=== PATIENT | female | born 1985 | race Caucasian/White ===

== ENCOUNTER 2017-06-21 09:25 | Emergency (ER) | payer SELFPAY ==
[2017-06-21 09:43] VITALS: TEMP 98.7; BMI 22.4
[2017-06-21 09:47] LABS: URINE APPEARANCE Clear; URINE BILIRUBIN Negative (NEGATIVE); URINE BLOOD Negative (NEGATIVE); URINE GLUCOSE (UA) Negative (NEGATIVE); URINE KETONE 1+ (NEGATIVE); URINE LEUK ESTERASE Negative (NEGATIVE); URINE NITRITE Negative (NEGATIVE); URINE PROTEIN Negative (NEGATIVE); URINE UROBILINOGEN 0.2 (0.2-1.0)
[2017-06-21 09:51] LABS: URINE COLOR YELLOW
[2017-06-21] MEDS ORDERED: SODIUM CHLORIDE 1,000 ML IV ONE (09:53)
--- NOTE | 2017-06-21 09:59 | PDOC ---
History of Present Illness - General Chief Complaint: Palpitations Stated Complaint: FELT SHAKEY THIS AM HAD PALPITATION AND VOMITT Time Seen by Provider: 06/21/17 09:29 History Source: Patient Exam Limitations: No Limitations - History of Present Illness Initial Comments: 06/21/17 09:54 31y F with no pmhx presents with complaint of feeling shaky and palpitations. Pt states she was out celebrating last night and had about 5 beers, this morning , she woke up feeling very shaky, feeling nervous. Her family member checked her bp and saw it was 90s/70s so she drank some water and coffee, she didnt feel much better so came to the ED. En route, she felt nauseus, lightheaded and briefly had some blurred vision. She vomited in front of the ED and notes she feels alittle better, but still feels very nevous and shaky. Pt has never felt like this before. Pt denies any cp, sob, abd pain, melena/bpr, dysuria, frequency. LMP approx 20 days ago. Family history of DM Pt is a daily smoker. Denies any IVDU, cocaine use drinks approx 1x month. PMD: someone at [facility] Past History - Past Medical History Allergies/Adverse Reactions: Allergies Allergy/AdvReac Type Severity Reaction Status Date / Time No Known Allergies Allergy Unverified 06/21/17 09:35 Home Medications: Ambulatory Orders Aspirin [ASA -] 81 mg PO DAILY #30 tab.chew 06/21/17 Metoprolol Tartrate 25 mg PO DAILY #30 tablet 06/21/17 Other medical history: DENIES - Psycho/Social/Smoking Cessation Hx Anxiety: No Suicidal Ideation: No Smoking History: Current every day smoker Have you smoked in the past 12 months: Yes Number of Cigarettes Smoked Daily: 3 Information on smoking cessation initiated: Yes 'Breaking Loose' booklet given: 06/21/17 Hx Alcohol Use: Yes (OCCASSIONAL) Drug/Substance Use Hx: No Substance Use Type: Alcohol Review of Systems - Review of Systems Able to Perform ROS?: Yes Comments:: 06/21/17 09:58 Constitutional - +feeling nervous no reported Fever, Chills, HEENT: no reported vision changes, sore throat Respiratory: no reported cough, sob, hemoptysis Cardiac: +palpitations, light headedness, no reported chest pain, leg swelling Abd/GI: +nausea, vomiting, no reported abd pain, blood per rectum, melena, diarrhea : no reported dysuria, frequency, discharge Musculskelatal - no reported back pain, joint swelling skin - no reported bruising, erythema, rash neurological: no reported headache, numbness, focal weakness, tingling, ataxia, hematologic: no reported anemia, easy bruising, easy bleeding *Physical Exam - Vital Signs Last Vital Signs Temp Pulse Resp BP Pulse Ox 98.7 F 90 16 102/65 100 06/21/17 09:29 06/21/17 11:55 06/21/17 11:55 06/21/17 11:55 06/21/17 11:55 - Physical Exam Comments: 06/21/17 09:58 GENERAL: The patient is awake, alert, and fully oriented, Nontoxic - in no acute distress. HEAD: Normocephalic, atraumatic. EYES: extraocular movements intact, sclera anicteric, conjunctiva clear. ENT: Normal voice, Moist mucous membranes. NECK: Normal range of motion, supple LUNGS: Breath sounds equal, clear to auscultation bilaterally. No wheezes, no rhonchi, no rales. HEART: irregularly irregular, tachycardic, normal S1 and S2 without murmur, rub or gallop. ABDOMEN: Soft, nontender, normoactive bowel sounds. No guarding, no rebound. . No CVA tenderness EXTREMITIES: Normal range of motion, no edema. neg homans sign, no tenderness NEUROLOGICAL: No facial assymetry, Normal speech, moving all 4 extremities spontaneously and symemtrically PSYCH: Normal mood, normal affect. SKIN: Warm, Dry, normal turgor, Heart Score/ECG Review - ECG Impressions Comment:: 06/21/17 09:59 Twelve-lead EKG was performed and reviewed by me. Irregularly irregular, rate of 111 The axis is normal. There is normal R wave progression There are no ST or T wave abnormalities. Impression: A. fib with RVR 06/21/17 11:52 Twelve-lead EKG was performed and reviewed by me. There is normal sinus rhythm with a normal rate. Rate of 90 The axis is normal. The intervals are normal. There is normal R wave progression There are no ST or T wave abnormalities. Impression: Normal twelve-lead EKG ED Treatment Course - LABORATORY CBC & Chemistry Diagram: 06/21/17 10:06 06/21/17 10:06 - ADDITIONAL ORDERS Additional order review: Laboratory Results 06/21/17 06/21/17 06/21/17 10:06 10:06 10:06 INR 0.88 L Sodium 135 L Potassium 5.0 Chloride 104 Carbon Dioxide 20 L Anion Gap 11 BUN 17 Creatinine 0.7 Creat Clearance w eGFR > 60 Random Glucose 101 Calcium 9.1 Magnesium 1.9 Total Bilirubin 1.2 H AST 35 ALT 12 Alkaline Phosphatase 39 Creatine Kinase 148 Troponin I 0.01 Total Protein 8.0 Albumin 4.6 Urine Color Urine Appearance Urine pH Ur Specific Crowley Urine Protein Urine Glucose (UA) Urine Ketones Urine Blood Urine Nitrite Urine Bilirubin Urine Urobilinogen Ur Leukocyte Esterase Urine HCG, Qual 06/21/17 09:37 INR Sodium Potassium Chloride Carbon Dioxide Anion Gap BUN Creatinine Creat Clearance w eGFR Random Glucose Calcium Magnesium Total Bilirubin AST ALT Alkaline Phosphatase Creatine Kinase Troponin I Total Protein Albumin Urine Color Yellow Urine Appearance Clear Urine pH 7.0 Ur Specific Crowley 1.020 Urine Protein Negative Urine Glucose (UA) Negative Urine Ketones 1+ H Urine Blood Negative Urine Nitrite Negative Urine Bilirubin Negative Urine Urobilinogen 0.2 Ur Leukocyte Esterase Negative Urine HCG, Qual Negative 06/21/17 10:06 RBC 4.84 MCV 88.2 MCHC 34.7 RDW 12.7 MPV 8.4 Neutrophils % 68.9 Lymphocytes % 22.0 Monocytes % 6.3 Eosinophils % 1.0 Basophils % 1.8 - RADIOLOGY Radiology Studies Ordered: Category Date Time Status CHEST X-RAY PORTABLE* [RAD] Stat Radiology 06/21/17 09:45 Completed - Medications Given in the ED: ED Medications Discontinued Medications Generic Name Dose Route Start Last Admin Trade Name Freq PRN Reason Stop Dose Admin Acetaminophen 650 mg 06/21/17 10:19 06/21/17 10:25 Tylenol - PO 06/21/17 10:20 650 mg ONCE ONE Administration Diltiazem HCl 10 mg 06/21/17 10:27 06/21/17 10:30 Cardizem Injection - IVPUSH 06/21/17 10:28 10 mg ONCE ONE Administration Diltiazem HCl 30 mg 06/21/17 10:48 06/21/17 11:46 Cardizem - PO 06/21/17 10:49 Not Given ONCE ONE Diltiazem HCl 20 mg 06/21/17 11:15 06/21/17 11:46 Cardizem Injection - IVPUSH 06/21/17 11:16 Not Given ONCE ONE Sodium Chloride 1,000 mls @ 1,000 mls/hr 06/21/17 09:53 06/21/17 10:08 Normal Saline - IV 06/21/17 10:52 1,000 mls/hr .Q1H ONE Administration Medical Decision Making - Medical Decision Making 06/21/17 10:00 31y F no pmhx presents with palpitations and feeling nervous, one episode of vomiting prior to arrival. on exam pt appears in no distress but has a rapid/ irregular HR exam otherwise unremarakble pt was placed on clinical research monitor and showed a rapid irregularly irregular HR ekg was performed that showed afib with rate in 140s. pt does seem orthostatic with her HR going up to the 160s when i sat her up during examiniation. will give fluids will ck cbc, cmp, tsh, cardiac profile pt placed on cadiac monitor 06/21/17 11:44 06/21/17 11:45 pts rhythm strip appears back in sinus rhthm will obtain ekg will discuss with cardiology regarding disposition 06/21/17 11:52 06/21/17 12:[address] leyva as pts currently back to sinus and there was a fairly clear onset of symptoms as pt was symptomatic offered patient option of staying for observation / workup vs. outpatient workup pt prefers outpatientw orkup will start pt on metoprolol 25mg daily and asa 81mg will have pt fu with heat seal operator later this week return precautions were discussed for any recurrent symptoms. I discussed the physical exam findings, ancillary test results and final diagnoses with the patient. I answered all of the patient's questions. The patient was satisfied with the care received and felt comfortable with the discharge plan and treatment plan. The patient will call their primary care physician within 24 hours to arrange follow-up and will return to the Emergency Department with any new, persistent or worsening symptoms. CRITICAL CARE DOCUMENTATION: I spent ~45 minutes of Critical Care time, excluding separately billable procedures, involving high complexity decision making to assess, manipulate and support vital system function(s) to treat single or multiple vital organ system failure and/or to prevent further life threatening deterioration of the patient' s condition. *DC/Admit/Observation/Transfer Diagnosis at time of Disposition: Atrial fibrillation, transient - Discharge Dispostion Disposition: HOME Condition at time of disposition: Stable Admit: No - Prescriptions Prescriptions: Aspirin [ASA -] 81 mg PO DAILY #30 tab.chew Metoprolol Tartrate 25 mg PO DAILY #30 tablet - Referrals Referrals: Amol Leyva MD [Staff Physician] - - Patient Instructions Printed Discharge Instructions: DI for Atrial Fibrillation Additional Instructions: Return to the emergency department immediately with ANY new, persistent or worsening symptoms including any chest pain, shortness of breath, palpitations, lightheadedness, any other concerns Avoid caffeine and stimulants. MAke sure you are staying well hydrated. You MUST call and follow up with your doctor and a heat seal operator within 3 days for further evaluation of your symptoms. Results were discussed with you. Please make sure your doctor reviews the results of your emergency evaluation. If you cannot secure a cardiolgist through your primary care doctor at [facility] , you may contact Dr. Leyva whose information is provided. Print Language: JAPANESE
[2017-06-21] MEDS ORDERED: dilTIAZem HCL 50 MG/10 ML - 10 ML VIAL IVPUSH ONE ×4 (10:13→11:15)
[2017-06-21] MEDS ORDERED: ACETAMINOPHEN 325 MG TABLET (FP) PO ONE (10:19)
[2017-06-21] MEDS ORDERED: ACETAMINOPHEN 325 MG TABLET (FP) ONE (10:21)
[2017-06-21] MEDS ORDERED: dilTIAZem HCL 50 MG/10 ML - 10 ML VIAL ONE (10:22)
[2017-06-21 10:28] LABS: WHITE BLOOD COUNT 8.1 K/mm3 (4.0-10.8)
[2017-06-21 10:31] LABS: INR 0.88 (0.82-1.09); PROTHROMBIN TIME (PATIENT) 9.9 SEC (10.2-13.0)
[2017-06-21 10:32] LABS: BASOPHIL 1.8 % (0-2.0); MCH 30.6 pg (25.7-33.7); MCHC 34.7 g/dl (32.0-36.0); MEAN CELL VOLUME 88.2 fl (80-96); MEAN PLT VOLUME 8.4 fl (7.5-11.1); NEUTROPHILS 68.9 % (42.8-82.8); PLATELET COUNT 297 K/MM3 (134-434); RDW 12.7 % (11.6-15.6)
[2017-06-21 10:37] LABS: ALBUMIN 4.6 g/dl (3.5-5.0); ALK PHOS 39 U/L (32-92); ANION GAP 11 (8-16); BILIRUBIN,TOTAL 1.2 mg/dl (0.2-1.0); CALCIUM 9.1 mg/dl (8.4-10.2); CO2 20 mmol/L (22-28); CREATININE 0.7 mg/dl (0.6-1.3); GLUCOSE,RANDOM 101 mg/dl (74-106); MAGNESIUM 1.9 mg/dL (1.8-2.4); SGOT/AST 35 U/L (10-42); SGPT/ALT 12 U/L (10-40)
[2017-06-21] MEDS ORDERED: dilTIAZem HCL 30 MG TABLET (FP) PO ONE (10:48)
[2017-06-21 10:53] LABS: TROPONIN I 0.01 ng/ml (0.00-0.05)
[2017-06-21 12:39] VITALS: BP 102/66; PULSE 86
--- NOTE | 2017-06-21 19:02 | EKG ---
Test Reason : Blood Pressure : / mmHG Vent. Rate : 090 BPM Atrial Rate : 090 BPM P-R Int : 146 ms QRS Dur : 080 ms QT Int : 344 ms P-R-T Axes : 060 052 050 degrees QTc Int : 420 ms NORMAL SINUS RHYTHM NORMAL ECG WHEN COMPARED WITH ECG OF 21-JUN-2017 10:47, SINUS RHYTHM HAS REPLACED ATRIAL FIBRILLATION Confirmed by DORA WISDOM MD ([id number]) on 06/21/2017 7:02:37 PM Referred By: DINA SIBLEY Confirmed By:DORA WISDOM MD
--- NOTE | 2017-06-22 10:15 | EKG ---
Test Reason : Blood Pressure : / mmHG Vent. Rate : 112 BPM Atrial Rate : 127 BPM P-R Int : 000 ms QRS Dur : 082 ms QT Int : 318 ms P-R-T Axes : 000 066 040 degrees QTc Int : 434 ms ATRIAL FIBRILLATION WITH RAPID VENTRICULAR RESPONSE ABNORMAL ECG WHEN COMPARED WITH ECG OF 21-JUN-2017 09:43, NO SIGNIFICANT CHANGE WAS FOUND Confirmed by DORA WISDOM MD ([id number]) on 06/22/2017 10:15:09 AM Referred By: DINA SIBLEY Confirmed By:DORA WISDOM MD
--- NOTE | 2017-06-22 10:15 | EKG ---
Test Reason : Blood Pressure : / mmHG Vent. Rate : 135 BPM Atrial Rate : 192 BPM P-R Int : 000 ms QRS Dur : 076 ms QT Int : 294 ms P-R-T Axes : 000 054 027 degrees QTc Int : 441 ms ATRIAL FIBRILLATION WITH RAPID VENTRICULAR RESPONSE ABNORMAL ECG NO PREVIOUS ECGS AVAILABLE Confirmed by DORA WISDOM MD ([id number]) on 06/22/2017 10:15:16 AM Referred By: DINA SIBLEY Confirmed By:DORA WISDOM MD
== END 2017-06-21 12:49 | disposition home or self-care (01) ==
LOC: FER 09:25
PROC: 3E0337Z Introduction of Electrolytic and Water Balance Substance into Peripheral Vein, Percutaneous Approach (ICD-10-PCS; principal; 2017-06-21)
PROC: 3E033GC Introduction of Other Therapeutic Substance into Peripheral Vein, Percutaneous Approach (ICD-10-PCS; 2017-06-21)
DX: I48.91 Unspecified atrial fibrillation (principal)
CPT/HCPCS: 36415; 71010-TC; 80053; 81003; 83735; 84484; 84703; 85025; 85610; 93005; 93010; 99285-25

== ENCOUNTER 2019-05-23 10:55 | Emergency (ER) | payer OTHER ==
--- NOTE | 2019-05-23 11:07 | PDOC ---
History of Present Illness - General Chief Complaint: Tachycardia Stated Complaint: PALPITATIONS Time Seen by Provider: 05/23/19 11:06 - History of Present Illness Initial Comments: 05/23/19 11:23 Chief complaint: Rapid heartbeat History of present illness: While cleaning house this morning, patient noted sudden onset of rapid heart beat. There was mild nausea and she experienced 3 episodes of vomiting. There was no chest pain, shortness of breath, dizziness, lightheadedness, or perspiring. Review of systems: as noted above. denies stress, anxiety, or excessive stimulant consumption.Otherwise negative Past medical history: Similar episode 2 years ago, begun on beta vinicio, but discontinued after cardiac consultation. Social history: Smokes one pack of cigarettes per week. Denies alcohol other drugs. Denies anxiety, excessive stress, or depression. Family history: Has no children. Mother, father, and siblings no significant cardiac disease. Physical exam: Alert oriented well-developed well-nourished no acute distress cooperative Afebrile, vital signs normal PERRLA, fundi benign, ENT clear Neck supple without bruit mass or nodes Labdomen soft nontendeungs clear full breath sounds bilaterally CV S1 and S2 normal without murmur rub or gallop pulses full and symmetric no JVD or edema no bruits. Rate is 160 and irregularly irregular Abdomen soft nontender no mass or organomegaly Neuro intact impression: Recurrence of rapid atrial fibrillation, probably paroxysmal, rule out acute cardiac injury or metabolic imbalance Plan: EKG, cardiac enzymes, monitoring, serum electrolytes, pharmacologic rate control, further evaluation depending on responce Past History - Past Medical History Allergies/Adverse Reactions: Allergies Allergy/AdvReac Type Severity Reaction Status Date / Time No Known Allergies Allergy Unverified 06/21/17 09:35 Home Medications: Ambulatory Orders Metoprolol Tartrate [Lopressor] 50 mg PO BID #20 tab 05/23/19 - Suicide/Smoking/Psychosocial Hx Smoking History: Current every day smoker Have you smoked in the past 12 months: Yes Number of Cigarettes Smoked Daily: 3 'Breaking Loose' booklet given: 06/21/17 Hx Alcohol Use: Yes (OCCASSIONAL) Drug/Substance Use Hx: No Substance Use Type: Alcohol *Physical Exam - Vital Signs Last Vital Signs Temp Pulse Resp BP Pulse Ox 98.1 F 94 H 16 99/75 100 05/23/19 11:25 05/23/19 14:00 05/23/19 14:00 05/23/19 14:00 05/23/19 14:00 ED Treatment Course - LABORATORY CBC & Chemistry Diagram: 05/23/19 11:00 05/23/19 11:00 - ADDITIONAL ORDERS Additional order review: Laboratory Results 05/23/19 05/23/19 05/23/19 12:55 11:00 11:00 PT with INR INR Sodium 139 Potassium 3.7 Chloride 109 H Carbon Dioxide 19 L Anion Gap 11 BUN 14.0 Creatinine 0.6 Est GFR (CKD-EPI)AfAm 138.80 Est GFR (CKD-EPI)NonAf 119.76 Random Glucose 114 H Calcium 9.0 Total Bilirubin 0.6 AST 18 ALT 19 Alkaline Phosphatase 41 L Creatine Kinase 79 Troponin I < 0.03 Total Protein 7.5 Albumin 4.0 Urine HCG, Qual Negative 05/23/19 11:00 PT with INR 11.3 INR 1.01 Sodium Potassium Chloride Carbon Dioxide Anion Gap BUN Creatinine Est GFR (CKD-EPI)AfAm Est GFR (CKD-EPI)NonAf Random Glucose Calcium Total Bilirubin AST ALT Alkaline Phosphatase Creatine Kinase Troponin I Total Protein Albumin Urine HCG, Qual 05/23/19 11:00 RBC 4.22 MCV 89.6 MCHC 33.7 RDW 12.0 MPV 7.9 Neutrophils % 76.9 Lymphocytes % 16.3 Monocytes % 4.3 Eosinophils % 2.2 Basophils % 0.3 - Medications Given in the ED: ED Medications Discontinued Medications Generic Name Dose Route Start Last Admin Trade Name Freq PRN Reason Stop Dose Admin Diltiazem HCl 20 mg 05/23/19 12:48 05/23/19 13:07 Cardizem Injection - IVPUSH 05/23/19 12:49 20 mg ONCE ONE Administration Sodium Chloride 1,000 mls @ 1,000 mls/hr 05/23/19 13:28 05/23/19 13:30 Normal Saline - IV 05/23/19 14:27 1,000 mls/hr ASDIR STA Administration Metoprolol Tartrate 5 mg 05/23/19 11:15 05/23/19 11:20 Lopressor Injection - IVPUSH 05/23/19 11:16 5 mg ONCE ONE Administration Metoprolol Tartrate 5 mg 05/23/19 11:49 05/23/19 11:47 Lopressor Injection - IVPUSH 05/23/19 11:50 5 mg ONCE ONE Administration Metoprolol Tartrate 5 mg 05/23/19 12:07 05/23/19 12:12 Lopressor Injection - IVPUSH 05/23/19 12:08 5 mg ONCE ONE Administration Medical Decision Making - Medical Decision Making 05/23/19 13:21 EKG atrial fib rapid ventricular response. patient's rate reduced to 70/m after 3 doses of Lopresso IV and 1 dose of Cardizem. Rhythm is still atrial fibrillation. CBC and chemistries without significant abnormalities. Cardiac enzymes negative. 05/23/19 13:[address] Ryder, sports information director covering Dr. Leyva. Case was discussed. Recommended no anticoagulation at this time. Recommended discharge on beta vinicio 50 mg twice a day Office follow within 2 days. 05/23/19 14:43 Clinically and hemodynamically as directed stable at discharge to follow-up as directed *DC/Admit/Observation/Transfer Diagnosis at time of Disposition: Paroxysmal atrial fibrillation - Discharge Dispostion Disposition: HOME Condition at time of disposition: Improved Decision to Admit order: No - Prescriptions Prescriptions: Metoprolol Tartrate [Lopressor] 50 mg PO BID #20 tab - Referrals Referrals: Get Ryder MD [Non Staff, Medical] - - Patient Instructions Printed Discharge Instructions: DI for Atrial Fibrillation Additional Instructions: Your sports information director was contacted by phone and made the current recommendations He would like to see you in one to 2 days for follow-up .Please call office today and make appointment. Return to ER if symptoms develop. - Post Discharge Activity Forms/Work/School Notes: Back to Work
[2019-05-23 11:08] VITALS: BMI 22.7
[2019-05-23] MEDS ORDERED: METOPROLOL TARTRATE 5 MG/5 ML VIAL IVPUSH ONE ×3 (11:15→12:07)
[2019-05-23] MEDS ORDERED: METOPROLOL TARTRATE 5 MG/5 ML VIAL ONE ×3 (11:17→12:09)
[2019-05-23 11:21] LABS: BASO % 0.3 % (0-2.0); EOS % 2.2 % (0-4.5); HEMATOCRIT 37.8 % (32.4-45.2); HEMOGLOBIN 12.7 GM/dl (10.7-15.3); LYMPH % 16.3 % (8-40); MCH 30.2 pg (25.7-33.7); MCHC 33.7 g/dl (32.0-36.0); MEAN CELL VOLUME 89.6 fl (80-96); MEAN PLT VOLUME 7.9 fl (7.5-11.1); MONO % 4.3 % (3.8-10.2); NEUT % 76.9 % (42.8-82.8); PLATELET COUNT 293 K/MM3 (134-434); RBC 4.22 M/mm3 (3.60-5.2); WHITE BLOOD COUNT 7.9 K/mm3 (4.0-10.8)
[2019-05-23 11:27] VITALS: TEMP 98.1
[2019-05-23 11:39] LABS: INR 1.01 (0.82-1.09); PROTHROMBIN TIME (PATIENT) 11.3 SEC (10.2-13.0)
[2019-05-23 12:12] LABS: BILIRUBIN,TOTAL 0.6 mg/dl (0.2-1); CREATININE 0.6 mg/dl (0.55-1.3); POTASSIUM 3.7 mmol/L (3.5-5.1); TOT PROT 7.5 g/dl (6.4-8.2)
[2019-05-23] MEDS ORDERED: dilTIAZem HCL 50 MG/10 ML - 10 ML VIAL IVPUSH ONE (12:48)
[2019-05-23] MEDS ORDERED: dilTIAZem HCL 50 MG/10 ML - 10 ML VIAL ONE (13:04)
[2019-05-23] MEDS ORDERED: SODIUM CHLORIDE 1,000 ML IV STA (13:28)
[2019-05-23 14:22] VITALS: BP 99/75; PULSE 94
--- NOTE | 2019-05-23 16:46 | EKG ---
Test Reason : Blood Pressure : / mmHG Vent. Rate : 159 BPM Atrial Rate : 156 BPM P-R Int : 000 ms QRS Dur : 084 ms QT Int : 256 ms P-R-T Axes : 000 053 014 degrees QTc Int : 416 ms ATRIAL FIBRILLATION WITH RAPID VENTRICULAR RESPONSE NONSPECIFIC ST ABNORMALITY ABNORMAL ECG WHEN COMPARED WITH ECG OF 21-JUN-2017 11:49, ATRIAL FIBRILLATION HAS REPLACED SINUS RHYTHM VENT. RATE HAS INCREASED BY 69 BPM Confirmed by CHEL ABRAHAM, ZACHERY ([id number]) on 05/23/2019 4:46:27 PM Referred By: Confirmed By:ZACHERY MILLIGAN MD
[2019-05-23 23:37] LABS: EPITHELIAL CELLS FEW /hpf
--- NOTE | 2019-05-24 13:49 | EKG ---
Test Reason : Blood Pressure : / mmHG Vent. Rate : 080 BPM Atrial Rate : 120 BPM P-R Int : 000 ms QRS Dur : 082 ms QT Int : 376 ms P-R-T Axes : 000 050 039 degrees QTc Int : 433 ms ATRIAL FIBRILLATION ABNORMAL ECG WHEN COMPARED WITH ECG OF 23-MAY-2019 11:11, VENT. RATE HAS DECREASED BY 79 BPM Confirmed by MD VY, YONIS ([id number]) on 05/24/2019 1:49:18 PM Referred By: Confirmed By:YONIS MCCLELLAN MD
== END 2019-05-23 14:33 | disposition home or self-care (01) ==
LOC: FER 10:55
PROC: 3E033GC Introduction of Other Therapeutic Substance into Peripheral Vein, Percutaneous Approach (ICD-10-PCS; principal; 2019-05-23)
PROC: 3E0337Z Introduction of Electrolytic and Water Balance Substance into Peripheral Vein, Percutaneous Approach (ICD-10-PCS; 2019-05-23)
DX: I48.0 Paroxysmal atrial fibrillation (principal); F17.210 Nicotine dependence, cigarettes, uncomplicated
CPT/HCPCS: 36415; 80053; 81003; 81015; 82550; 84484; 84703; 85025; 85610; 93005; 96361; 96374; 96375; 96376; 99285-25; J7030